=== PATIENT | female | born 1935 | race Caucasian/White ===

== ENCOUNTER → 2016-03-01 | Outpatient (CLI) | payer OTHER, MEDICARE ==
[~2016-03-01] MED LIST: ACET-1175 PO; ASCO1CAP3 PO; CALC200S6 NAE; CALC200T PO; CHOL400C6 PO; CYAN10004 PO; HYPR0.2D IO; LISI-461 PO; MULT-884 PO; MULT60CA PO; PANT1TAB3 PO; PRED1SUS3 OPR; SENN8.6C PO
[2016-03-01 11:55] LABS: BLOOD UREA NITROGEN 24 mg/dl (7-18); BUN/CREATININE RATIO 21.5 (10-20); CALCIUM 10.4 mg/dl (8.5-10.1); CARBON DIOXIDE 29 mmol/L (21-32); CHLORIDE 104 mmol/L (98-107); CHOLESTEROL 225 mg/dl (0-200); GLUCOSE 97 mg/dl (70-99); POTASSIUM 4.1 mmol/L (3.5-5.1); SODIUM 142 mmol/L (136-145); TRIGLYCERIDES 106 mg/dl (0-150); VERY LOW DENSITY LIPOPROT CALC 21 mg/dl
[2016-03-01 11:58] LABS: CHOLESTEROL/HDL RATIO 3.4; HDL CHOLESTEROL 67 mg/dl; LDL CHOLESTEROL CALCULATED 137 mg/dl
== END | disposition home or self-care (01) ==
LOC: C.LABVPSUW 11:05
PROVIDERS: ATTEND Internal Medicine Critical Care Medicine
DX: I10 Essential (primary) hypertension (principal); E78.5 Hyperlipidemia, unspecified

== ENCOUNTER → 2016-06-19 | Outpatient (CLI) | payer OTHER, MEDICARE ==
[~2016-06-19] MED LIST changes: -PANT1TAB3 PO; +PANT1TAB48 PO
--- NOTE | 2016-06-20 14:34 | MAMMOGRAPHY REPORT ---
BILATERAL DIGITAL SCREENING MAMMOGRAM WITH CAD: 06/19/2016 CLINICAL HISTORY: Routine screening. Patient has no complaints. TECHNIQUE: Bilateral CC and MLO views were obtained. Current study was also evaluated with a Comput er Aided Detection (CAD) system. COMPARISON: Comparison is made to exams dated: 06/17/2015 mammogram, 06/15/2014 mammogram, 12/22/2012 mammogram, and 12/19/2010 mammogram - [facility]. BREAST COMPOSITION: The tissue of both breasts is heterogeneously dense, which may obscure small ma sses. FINDINGS: Linear scar markers overlie the upper outer posterior aspect of each breast. There are sc attered bilateral benign coarse calcifications and benign rim calcifications. No new suspicious mas s, architectural distortion or cluster of suspicious microcalcifications is seen. IMPRESSION: ACR BI-RADS CATEGORY 1: NEGATIVE There is no mammographic evidence of malignancy. A 1 year screening mammogram is recommended. The p atient will receive written notification of the results. Approximately 10% of breast cancers are not detected with mammography. A negative mammographic repor t should not delay biopsy if a clinically suggestive mass is present. Trang Beal M.D. ay/:06/19/2016 16:51:05 Welding Rod Coater: Madison JADE(Viry)(Robin), [facility] letter sent: Normal 1/2 BI-RADS Code: ACR BI-RADS Category 1: Negative
== END | disposition home or self-care (01) ==
LOC: C.MAMM 10:27
PROVIDERS: ATTEND Family Medicine
DX: Z12.31 Encounter for screening mammogram for malignant neoplasm of breast (principal)

== ENCOUNTER → 2016-09-14 | Outpatient (CLI) | payer OTHER, MEDICARE ==
[2016-09-14 09:08] LABS: BLOOD UREA NITROGEN 17 mg/dl (7-18); BUN/CREATININE RATIO 15.5 (10-20); CALCIUM 9.9 mg/dl (8.5-10.1); CARBON DIOXIDE 31 mmol/L (21-32); CHLORIDE 104 mmol/L (98-107); GLUCOSE 96 mg/dl (70-99); POTASSIUM 3.8 mmol/L (3.5-5.1); SODIUM 140 mmol/L (136-145)
[2016-09-14 09:11] LABS: ALB/GLOB RATIO 1.3 (0.9-2); ALKALINE PHOSPHATASE 91 U/L (45-117); ALT/SGPT 20 U/L (12-78); AST/SGOT 15 U/L (15-37)
== END | disposition home or self-care (01) ==
LOC: C.LABVPSUW 08:48
PROVIDERS: ATTEND Internal Medicine Critical Care Medicine
DX: I10 Essential (primary) hypertension (principal)

== ENCOUNTER → 2016-12-05 | Outpatient (CLI) | payer OTHER, MEDICARE ==
--- NOTE | 2016-12-05 15:47 | MAMMOGRAPHY REPORT ---
UNILATERAL RIGHT DIGITAL DIAGNOSTIC MAMMOGRAM TOMOSYNTHESIS WITH CAD AND TARGETED RIGHT ULTRASOUND: 1 CLINICAL HISTORY: Patient presents after her physician palpated a lump in the lateral right breast. Patient has a remote history of prior benign bilateral breast surgical excisional biopsies. Patient is unsure of exact location of the lump at this time. TECHNIQUE: Right breast tomosynthesis in addition to standard 2D mammography was performed. Current jordan schrader was also evaluated with a Computer Aided Detection (CAD) system. COMPARISON: Comparison is made to exams dated: 06/19/2016 mammogram, 06/17/2015 mammogram, 06/15/2014 m ammogram, 12/22/2012 mammogram, 12/19/2010 mammogram, and 12/16/2009 mammogram - [facility]. BREAST COMPOSITION: The tissue of the right breast is heterogeneously dense, which may obscure small masses. FINDINGS: The parenchymal pattern of the right breast is similar to prior mammograms. There are nume jeana scattered benign coarse calcifications and stable groupings of benign-appearing round and puncta te microcalcifications. There are also minimal vascular calcifications in the right breast. No obvi ous new mass, focal area of architectural distortion, asymmetry or new suspicious microcavitation ind ications are identified. Targeted ultrasound was performed throughout the lateral right breast from the 11:00 through 7:00 axe s in the area of palpable abnormality described by the patient and her daughter. In the 9:00 axis, 5 cm from the nipple, there is a multilobulated partially circumscribed solid-appearing mass measuring 5.5 x 7.7 x 6.8 mm. No significant increased vascularity. There are echogenic reflectors within, l ikely representing calcifications, suggesting this could represent a degenerating fibroadenoma. Barahona brendan, given the solid nature definitive characterization with an ultrasound-guided core biopsy is halle mmended. IMPRESSION: ACR BI-RADS CATEGORY 4: SUSPICIOUS, TARGETED ULTRASOUND ACR BI-RADS CATEGORY 4: SUSPICIO US 1. Ultrasound guided core biopsy is recommended for a solid multilobulated 7.7 mm mass in the 9:00 r ight breast, 5 cm from the nipple. 2. It is unclear if this correlates as palpated, given that the patient was unable to point out the exact location of the palpable abnormality felt by her physician and therefore a larger area of the l ateral right breast was ultrasounded. 3. No other suspicious mammographic or targeted sonographic abnormality is seen. These results and recommendations were discussed with the patient and her daughter at the time of the exam. She tentatively scheduled the biopsy prior to leaving our department. Approximately 10% of breast cancers are not detected with mammography. A negative mammographic report should not delay biopsy if a clinically suggestive mass is present. Trang Beal M.D. ay/:12/05/2016 15:00:03 [employer]: Madison JADE(R)(M), [facility] letter sent: Abnormal 4/5 BI-RADS Code: ACR BI-RADS Category 4: Suspicious Ultrasound BI-RADS: ACR BI-RADS Category 4: Suspici ous
== END | disposition home or self-care (01) ==
LOC: C.MAMM 13:30
PROVIDERS: ATTEND Family Medicine
DX: N63.10 Unspecified lump in the right breast, unspecified quadrant (principal)

== ENCOUNTER → 2016-12-17 | Outpatient (CLI) | payer OTHER, MEDICARE ==
--- NOTE | 2016-12-17 11:00 | Discharge Instructions ---
Discharge Instructions Procedure Procedure Date: Dec 17, 2016. Reason for visit: Right Mass. Discharge Discharge Date: Dec 17, 2016. Discharge Diagnosis: post right breast mass ultrasound guided core biopsy Instructions Activity Recommendations: Additional Limitations (see below) Return to School/Work: no limitations Recommended Home Diet: No Limitations Provider Instructions: ACTIVITY RECOMMENDATIONS: * No lifting, pushing, pulling or exercising the affected side for three days. RETURN TO SCHOOL/WORK: * You may return to work/school after the procedure, but do not perform any strenuous activities for 24 to 48 hours. MEDICATIONS: * Tylenol (two 325 mg) every four to six hours if needed for mild pain (if not allergic to Tylenol). DIET: * Resume previous diet. SPECIAL CARE INSTRUCTIONS: * Keep biopsy site dry for 24 hours. May shower after 24 hours, but do not soak (bathe) incision. * May remove Tegaderm (plastic patch) tomorrow AFTER showering. * Leave the steri-strips on for one week. Allow the steri-strips to fall off by themselves. If not off after one week, you may remove them. You may place a Bandaid crosswise over the strips, if desired. * Apply ice 10 minutes on and 10 minutes off as needed for first day. Then switch to heat for next week. * Wear a bra at bedtime to sleep more comfortably for 2-3 days. * Your referring physician should have the results after approximately 5 to 7 business days. * Call for unusual bleeding, fever, drainage, etc or if you have any questions call [phone] during normal business hours or after hours call Dr Beal, . FOLLOW UP VISIT: Follow-up with Referring Physician as scheduled. Allergies Coded Allergies: Adhesives (Verified Allergy, Unknown, RED SKIN, 04/20/15) Sulfa Drugs (Verified Allergy, Unknown, RASH, 04/20/15) Codeine (Verified Adverse Reaction, Unknown, dizzy, 04/20/15) Leticia Urban Recommendations: Call your doctor if: * Temperature above 101 degrees * Pain not relieved by pain medicine ordered * There is increased drainage or redness from any incision * You have any unanswered questions or concerns. Your Doctors Instructions noted above were prepared by provider Trang Beal. Patient Signature Section: Patient Instructions Signature Page Karissa Chapin Patient (or Guardian) Signature/Date: I have read and understand the instructions given to me by my caregivers. Caregiver/RN/Doctor Signature/Date: The above-named patient and/or guardian has received patient instructions on this date. + Original Patient Signature Page (only) stays with chart. Please make copy for patient.
--- NOTE | 2016-12-17 13:34 | MAMMOGRAPHY REPORT ---
THIS REPORT HAS BEEN AMENDED. ULTRASOUND GUIDED BIOPSY RIGHT BREAST: 12/17/2016 CLINICAL HISTORY: Indeterminate lobulated and circumscribed 7.7 mm mass in the 9:00 right breast. Buddy britton presents for ultrasound-guided core needle biopsy. Patient initially presented as her physicia n palpated a lump in the lateral right breast and it is still unclear if this correlates at palpated. Clinical follow-up is still recommended. COMPARISON: Comparison is made to exams dated: 12/05/2016 ultrasound, 12/05/2016 mammogram, 7 mammogram, 06/17/2015 mammogram, 06/15/2014 mammogram, and 12/22/2012 mammogram - [facility]. PATIENT CONSENT: The procedure, risks and benefits were discussed with the patient and informed conse nt was obtained both verbally and in writing. Specific risks to this procedure include: bleeding, in fection, puncture of adjacent structure, nontarget biopsy, sampling error, pain, metal allergy and me dication reaction. PROCEDURE DESCRIPTION: A time out was performed and the right breast was agreed as the site of biopsy . The skin was prepped and draped in the usual sterile fashion. The hypoechoic solid parallel circums cribed 7.7 mm mass with associated calcification mass in the 9:00 right breast was chosen as the targ et for biopsy. Subcutaneous and intraparenchymal 1% buffered lidocaine, with and without epinephrine, was administered as local anesthesia. A skin incision was made. Through the incision, 3 samples wer e taken with a 14 gauge Achieve biopsy device. After the third sample the mass was nearly completely obscured due to bleeding along the biopsy tract surrounding the biopsied mass therefore, no addition al samples were able to be obtained and a biopsy marker clip was placed in the expected prior locatio n of the mass. Hemostasis was achieved after approximately 20 minutes of manual compression. The pat ient tolerated the procedure well and there was no immediate complication. The samples were sent to the pathology department in an appropriately labeled container. Postprocedure right CC and ML symphysis images were then obtained. A new ribbon sheared biopsy marke r clip is seen in the 9:00 middle one third of the right breast, at the site of the biopsied mass. T he biopsy marker clip is located near a grouping of 3 microcalcifications (approximately 9.8 mm media l on the CC tomosynthesis (images, and 6.5 mm inferior on the ML tomosynthesis images), suggesting th manohar calcifications are likely associated with the biopsied mass and the marker clip is slightly displ aced. No obvious postbiopsy hematoma is identified. Given that hematoma was seen along the biopsy t ract on ultrasound, instructions for 24 hours of ice and then switch over to heat without water bottl e or heating pad were discussed with the patient prior to leaving our department. IMPRESSION: ULTRASOUND GUIDED BIOPSY Status post ultrasound-guided core biopsy of an indeterminate solid 7.7 mm mass in the 9:00 right roma ast, with biopsy marker clip placed at the site. The clip is slightly displaced from the biopsied ma ss given bleeding along the biopsy tract during the biopsy, and annotations on measurements were made on the postprocedure mammograms as to location. The patient will receive notification of the biopsy results from her referring physician. Clinical f ollow-up is again recommended as I am unsure if this biopsied mass correlates with the original palpa blank mass by the patient's physician. Trang Beal M.D. ay/:12/17/2016 12:36:16 Silk Examiner: Madison Davison RT(Viry)(M), [facility] AMENDMENT: 12/26/2016 Trang Beal M.D. Pathology results from the ultrasound-guided core biopsy of an indeterminate solid mass in the 9:00 r ight breast yielded diffuse stromal fibrosis with intervening benign ducts. The cystic component of fibrocystic change is not seen. No tumor seen. The pathology results are concordant with the imagin g appearance. The patient is due for bilateral screening mammography in May 2017. Also recommend continued clinical follow-up given that the patient initially presented for workup of a palpable abno rmality felt by her physician and it is unclear if this sonographic finding truly represents the area of palpable concern, given that the patient was unsure of the exact location of the palpable abnorma lity.
--- NOTE | 2016-12-17 13:36 | MAMMOGRAPHY REPORT ---
UNILATERAL RIGHT DIGITAL DIAGNOSTIC MAMMOGRAM TOMOSYNTHESIS: 12/17/2016 CLINICAL HISTORY: Status post ultrasound-guided core biopsy of an indeterminate solid mass in the 9:0 0 right breast, 5 cm from the nipple. Please refer to the report from right breast ultrasound-guided core biopsy performed at the same time for full detail. IMPRESSION: POST PROCEDURE IMAGING FOR MARKER PLACEMENT Please refer to the report from right breast ultrasound-guided core biopsy performed at the same time for full detail. Approximately 10% of breast cancers are not detected with mammography. A negative mammographic report should not delay biopsy if a clinically suggestive mass is present. Trang Beal M.D. ay/:12/17/2016 10:59:00 [place]: Madison JADE(Viry)(Robin), [facility] BI-RADS Code: Post Procedure Imaging For Marker Placement
== END | disposition home or self-care (01) ==
LOC: C.MAMM 09:43
PROVIDERS: ATTEND Family Medicine
DX: N63.0 Unspecified lump in unspecified breast (principal)

== ENCOUNTER → 2017-06-03 | Outpatient (CLI) | payer OTHER, MEDICARE ==
[~2017-06-03] MED LIST changes: +PANT1TAB3 PO; -PANT1TAB48 PO
[2017-06-03 10:21] LABS: BLOOD UREA NITROGEN 25 mg/dl (7-18); CALCIUM 10.1 mg/dl (8.5-10.1); CARBON DIOXIDE 28 mmol/L (21-32); GLUCOSE 100 mg/dl (70-99); POTASSIUM 3.7 mmol/L (3.5-5.1); SODIUM 139 mmol/L (136-145)
== END | disposition home or self-care (01) ==
LOC: C.LABVPSUW 08:56
PROVIDERS: ATTEND Internal Medicine Critical Care Medicine
DX: I10 Essential (primary) hypertension (principal)

== ENCOUNTER → 2017-06-20 | Outpatient (CLI) | payer OTHER, MEDICARE ==
--- NOTE | 2017-06-24 07:47 | MAMMOGRAPHY REPORT ---
BILATERAL DIGITAL SCREENING MAMMOGRAM TOMOSYNTHESIS WITH CAD: 06/20/2017 CLINICAL HISTORY: Routine screening. Patient has no complaints. TECHNIQUE: Breast tomosynthesis in addition to standard 2D mammography was performed. Current study was also evaluated with a Computer Aided Detection (CAD) system. COMPARISON: Comparison is made to exams dated: 12/17/2016 mammogram, 12/17/2016 ultrasound biopsy, 1 ultrasound, 12/05/2016 mammogram, 06/19/2016 mammogram, and 06/17/2015 mammogram - [facility]. BREAST COMPOSITION: The tissue of both breasts is heterogeneously dense, which may obscure small mas ses. FINDINGS: No suspicious masses, calcifications, or areas of architectural distortion are noted in ei ther breast. There has been no significant interval change compared to prior exams. Bilateral benign -appearing calcifications are not significantly changed. Linear scar markers denote scars on bilater al breasts. A biopsy clip is again noted within the right 9:00 breast. IMPRESSION: ACR BI-RADS CATEGORY 2: BENIGN There is no mammographic evidence of malignancy. A 1 year screening mammogram is recommended. The pa tient will receive written notification of the results. Approximately 10% of breast cancers are not detected with mammography. A negative mammographic report should not delay biopsy if a clinically suggestive mass is present. Jaimee Sun M.D. /:06/20/2017 15:34:45 Chief Informatics Officer: Viry Jenkins M, [facility] letter sent: Normal 1/2 BI-RADS Code: ACR BI-RADS Category 2: Benign
== END ==
LOC: C.MAMM 10:34
PROVIDERS: ATTEND Family Medicine
DX: Z12.31 Encounter for screening mammogram for malignant neoplasm of breast (principal)

== ENCOUNTER → 2017-09-26 | Outpatient (CLI) | payer OTHER, MEDICARE | END | disposition home or self-care (01) | LOC: C.MAMM 10:43 | PROVIDERS: ATTEND Internal Medicine Critical Care Medicine | DX: M81.0 Age-related osteoporosis without current pathological fracture (principal); M85.851 Other specified disorders of bone density and structure, right thigh; M85.852 Other specified disorders of bone density and structure, left thigh ==